=== PATIENT | male | born 1940 | race Caucasian/White ===

== ENCOUNTER → 2020-07-21 | Outpatient (CLI) | payer OTHER ==
[~2020-07-21] MED LIST: ASPIR 8181 MG PO; FISH OIL 1,001000 M2; KEFLEX500 MG PO; NORVASC5 MG PO; ZOCOR20 MG PO
[2020-07-21 10:58] LABS: ABSOLUTE BASOPHILS 0.1 thou/uL (0.0-0.2); ABSOLUTE EOSINOPHILS 0.2 thou/uL (0.0-0.7); ABSOLUTE LYMPHOCYTES 2.1 thou/uL (0.8-5.3); ABSOLUTE MONOCYTES 0.8 thou/uL (0.0-1.2); ABSOLUTE NEUTROPHILS 4.6 thou/uL (1.6-8.1); EOSINOPHILS 2.6 %; HEMATOCRIT 43.8 % (42.0-52.0); HEMOGLOBIN 14.3 gm/dL (14.0-18.0); LYMPHOCYTES 27.1 %; MCH 31.2 pg (26.0-34.0); MCHC 32.5 g/dL (28.0-37.0); MPV 9.3 fl. (7.2-11.1); NUCLEATED RBCS 0 /100WBC; PLATELET COUNT* 215 thou/uL (150-400); POLYS 59.3 %; RBC 4.56 mil/uL (4.50-6.00); RDW-CV 13.9 % (10.5-14.5); WBC 7.7 thou/uL (4.0-11.0)
[2020-07-21 11:24] LABS: ALBUMIN 4.3 g/dL (3.4-5.0); CALCIUM 9.7 mg/dL (8.5-10.1); CREATININE 1.4 mg/dL (0.6-1.3); POTASSIUM 4.3 mmol/L (3.5-5.1); TOTAL BILIRUBIN 0.4 mg/dL (<0.1-1.0); TOTAL PROTEIN 8.2 g/dL (6.4-8.2)
== END ==
LOC: M.LAB 10:37
PROVIDERS: ATTEND Internal Medicine
DX: I42.8 Other cardiomyopathies (principal)

== ENCOUNTER → 2021-04-19 | Outpatient (CLI) | payer OTHER ==
--- NOTE | 2021-04-19 16:43 | CARDNUC ---
[place] [address] CARDIAC NUCLEAR IMAGING REPORT Name: MAI MARTINEZ ROSE Room: [facility]#: [id number] Admission: 04/19/21 Attend Phys: Luci Benitez Discharge: Date of : 36 Date of Service: 04/19/21 1642 Report #: [id number] THIS REPORT FOR: cc: Henrik House Bradley Dean DO Liston, Michael J. MD [facility] ~ APPROVED REPORT Imaging Protocol: Rest Tc-99m/Stress Tc-99m 1 day Study performed: 04/19/2021 09:01:58 Indication: Syncope Patient Location: Out-Patient Stress Tech: jim shaw Stress Nurse: Diann Garza RN NM Tech:OFELIA Harvey Ht: 5 ft 7 in Wt: 168 lbs BSA: 1.88 m2 BMI: 26.30 Medical History Medical History: Sick SinusSyndrom, bradycardia, hyperlipidemia, hypertensin pacemaker Medications: asa, losartan/hctz, kcl, simvastatin Allergies: codeine, lisinopril Cardiac Risk Factors: Age, HTN, Hyperlipidemia, Past Smoker Previous Cardiac Procedures: PPM Exercise History: Sedentary Resting Data Rest SPECT myocardial perfusion imaging was performed in supine position 30 minutes following the intravenous injection of 10.1 mCi of Tc-99m Sestamibi. Time of rest injection: 0800 Date: 04/19/2021 The images were gated to evaluate regional wall motion and calculate left ventricular ejection fraction. Administration Route: IV Administration Site: Right AC Pharmacologic Stress Pharmacologic stress test was performed by injecting Regadenoson 0.4 mg IV push over 10-15 seconds immediately followed by the intravenous injection of 35.2 mCi of Tc-99m Sestamibi. Time of stress injection: 0900 Date: 04/19/2021 [place] [address] CARDIAC NUCLEAR IMAGING REPORT Name: MAI MARTINEZ Room: [facility] [place]#: [id number] Admission: 04/19/21 Attend Phys: Luci Benitez Discharge: Date of : 36 Date of Service: 04/19/21 1642 Report #: [id number] Administration Route: IV Administration Site: Right AC Gated Stress SPECT was performed 40 minutes after stress injection. The images were gated to evaluate regional wall motion and calculate left ventricular ejection fraction. Prone imaging was performed. Stress Test Details Stress Test: Pharmacologic stress testing performed using 0.4 mg of regadenoson per 5 mL given IV over 10 seconds. Reason for pharmacologic stress test: pacemaker. HR Max Heart Rate (APMHR): 138 bpm Resting HR: 71 bpm Target HR (85% APMHR): 117 bpm Max HR Achieved: 80 bpm % of APMHR: 57 Recovery HR: 82 bpm BP Resting BP: 142/91 mmHg Max BP: 102/90 mmHg Recovery BP: 140/90 mmHg ECG Resting ECG: Atrially paced ventricularly sensed rhythm with right bundle branch block Stress ECG: Atrially paced ventricularly sensed rhythm with right bundle branch block ST Change: None Arrhythmia: None Recovery ECG: Atrially paced with ventricularly sensed rhythm with right bundle branch block Recovery ST Change: None Recovery Arrhythmia: None Clinical Reason for Termination: Completed protocol The patient tolerated Lexiscan infusion without significant cardiac symptoms. Stress ECG Conclusion The baseline twelve-lead EKG shows atrially paced and ventricularly sensed rhythm with a right bundle branch block. No acute ST or T wave abnormalities were noted at rest or with Lexiscan infusion. There were no [place] [address] CARDIAC NUCLEAR IMAGING REPORT Name: MAI MARTINEZ ROSE Room: [facility]#: [id number] Admission: 04/19/21 Attend Phys: Luci Benitez Discharge: Date of : 36 Date of Service: 04/19/21 1642 Report #: [id number] Study Quality Study: Good Study Data At rest, the left ventricular ejection fraction was 65%.. Post stress, the left ventricular ejection was 54%.. TID = 1.04. Perfusion Perfusion images obtained at rest and post Lexiscan stress show a small to moderate size severe intensity partially reversible defect involving the anteroapical wall. No other significant fixed or reversible defects were identified. Wall Motion LV systolic function is preserved. There is an area of akinesis involving the anteroapical wall. 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 Global LV systolic function is preserved with wall motion abnormalities as outlined above. This is a moderate risk study. <Conclusion> The baseline twelve-lead EKG shows atrially paced and ventricularly sensed rhythm with a right bundle branch block. No acute ST or T wave abnormalities were noted at rest or with Lexiscan infusion. There were no stress-induced arrhythmias. <ELECTRONICALLY SIGNED> By: Pedro Munoz MD, FACC 04/19/211641 41 [id number] Pedro Munoz MD, FACC /INF
== END ==
LOC: M.NUC 04-02 16:08
PROVIDERS: ATTEND Internal Medicine
DX: I25.89 Other forms of chronic ischemic heart disease (principal); R07.89 Other chest pain